=== PATIENT | female | born 2000 | race Caucasian/White ===

== ENCOUNTER 2020-05-23 12:38 | Outpatient (REF) | payer BC, SELFPAY | END 2020-05-23 12:39 | disposition home or self-care (01) | LOC: HO.LAB 12:38 | PROVIDERS: PCP Pediatrics; Visit Provider Internal Medicine | DX: Z20.822 Contact with and (suspected) exposure to COVID-19 (principal) | CPT/HCPCS: 36415; C9803; U0003 ==

== ENCOUNTER 2020-07-30 12:00 | Outpatient (REF) | payer BC, SELFPAY ==
[2020-07-30 14:39] LABS: SARS COV2 PCR INHOUSE NEGATIVE (Negative)
== END 2020-07-30 12:01 | disposition home or self-care (01) ==
LOC: HO.LAB 12:00
PROVIDERS: Visit Provider Internal Medicine
DX: Z20.822 Contact with and (suspected) exposure to COVID-19 (principal)
CPT/HCPCS: C9803; U0003

== ENCOUNTER 2021-05-08 20:29 | Emergency (ER) | payer OTHER, SELFPAY ==
--- NOTE | ~2021-05-08 | XR_ITS ---
EXAMINATION: X-RAY RIGHT WRIST/HAND CLINICAL INFORMATION: Fall. COMPARISON: None TECHNIQUE: 4 views of the right wrist and hand were obtained. FINDINGS: Subtle nondisplaced distal radial fracture with intra-articular extension. No other fractures or malalignment. The carpal rows and scapholunate interval are maintained. No unexpected radiopaque foreign bodies. XR/XR hand wrist RT IMPRESSION: Nondisplaced distal radial fracture with intra-articular extension.
[2021-05-08 21:10] VITALS: BP 121/75; PULSE 107; RESP 18; TEMP 36.7; O2SAT 100; BMI 21.0
[2021-05-09] MEDS: Ibuprofen 600 MG TABLET PO (01:44)
[2021-05-09 04:10] VITALS: BP 133/84; PULSE 81; RESP 18; TEMP 36.4; O2SAT 100
--- NOTE | 2021-05-09 04:11 | PC.NURSE ---
Addendum entered by Brenda Flores 05/09/21 04:21: assessed splint placement and fingers are warm and wiggels fingers and has no issues. Original Note: This pct applied a sugar-tongue to right arm per . Pt tolerated procedure well. rn aware
--- NOTE | 2021-05-09 04:17 | ED_ITS ---
HPI - Fall General Chief Complaint: Fall Stated Complaint: right wrist injury Time Seen by Provider: 05/09/21 03:18 Source: patient Mode of arrival: ambulatory History of Present Illness HPI Narrative: This is a 20-year-old female, left-hand dominant, with no significant past medical history you presents after a snowboarding accident where she fell and landed on her outstretched right arm. Patient denies hitting her head, loss of consciousness and denies any other pain elsewhere. She denies any numbness, tingling, coolness to the right hand. Related Data Allergies Allergy/AdvReac Type Severity Reaction Status Date / Time Penicillins Allergy Unknown Unknown Verified 05/08/21 21:10 Review of Systems Review of Systems: Pertinent positives and negatives as stated in HPI 10 point review of systems is otherwise negative. [facility] Past Medical History Source: nursing notes reviewed Social History Social History Advance Directives: No Advance Directives Information Provided: Yes Physical Exam Vital Signs: Vital Signs: Last Vital Signs Temp 97.6 F 05/09/21 04:10 Pulse 81 05/09/21 04:10 Resp 18 05/09/21 04:10 BP 133/84 05/09/21 04:10 Pulse Ox 100 05/09/21 04:10 BMI result Body Mass Index 21.0 VITAL SIGNS: Reviewed. GENERAL: Well developed, well nourished, in no acute distress. HEAD: Normocephalic/atraumatic EYES: PERRLA, EOMI LUNGS: Normal breath sounds. No adventitious sounds or accessory muscle use. SpO2<100> CARDIOVASCULAR: Regular rate and rhythm without noted murmurs ABDOMEN: Soft, non-tender, non-distended with bowel sounds. RIGHT UPPER EXTREMITY: Full range of motion noted at shoulder and elbow, no noted deformity, palpable radius/ulna, capillary refill less than 3 seconds and sensation is intact. NEUROLOGIC: Alert and oriented x 4. Strength and sensation to light touch were grossly intact x 4. Course Course Course Narrative: 20-year-old female with history and clinical presentation suspicious for fracture of right radius, review of films indicates fracture with intra-articular extension. Patient received ibuprofen and was then placed in a sugar-tong splint and discharged home in stable condition. She and her family will pursue follow-up with [facility]. Discharge Plan Discharge Clinical Impression: Distal radius fracture Patient Disposition: Home, Self-Care Instructions: Arm Fracture in Adults (ED) Additional Instructions: 1. Tylenol 1000 mg, orally, every 6 hours as needed for pain control. Do not exceed 4000 mg within 24 hours. Ibuprofen 400 mg, orally with milk or food, every 6 hours as needed for pain control. 2. Keep your arm in the splint until you are evaluated by Orthopedics, the referral has been provided to you below. 3. Follow-up with your primary care provider in the next 2-3 days for re- evaluation further outpatient management. Return to the ER for worsening symptoms. Referrals: Margarita Shepherd MD [Primary Care Provider] - 2 days (Rt radius fracture) Cristopher Vaughn MD [Physician] - 2 days (Rt radius fracture with intra-articular extension. Placed in Sugar Tong)
== END 2021-05-09 04:45 | disposition home or self-care (01) ==
PROVIDERS: Emergency Provider Student in an Organized Health Care Education/Training Program; PCP Pediatrics
DX: S52.571A Other intraarticular fracture of lower end of right radius, initial encounter for closed fracture (principal); W17.81XA Fall down embankment (hill), initial encounter; Y93.23 Activity, snow (alpine) (downhill) skiing, snowboarding, sledding, tobogganing and snow tubing; Y92.828 Other wilderness area as the place of occurrence of the external cause; Y99.9 Unspecified external cause status
CPT/HCPCS: 29125; 73110; 73130; 99283; 99284

== ENCOUNTER 2022-08-12 14:10 | Emergency (ER) | payer OTHER, SELFPAY ==
--- NOTE | ~2022-08-12 | XR_ITS ---
EXAMINATION: XR SOFT TISSUE NECK CLINICAL INDICATION: Evaluate for foreign body COMPARISON: None available. TECHNIQUE: 2 views of the soft tissue neck were obtained. FINDINGS: No retropharyngeal edema is identified. No radiopaque foreign body is appreciated. Aryepiglottic folds appear unremarkable. On AP film there is a radiopaque tubular appearing structure not seen on lateral view and likely related to a hair band or braid. Visualized paranasal sinuses and mastoid air cells unremarkable. XR/XR soft tissue neck IMPRESSION: No radiopaque foreign body identified within the oropharynx or larynx.
[2022-08-12 15:16] VITALS: BP 136/88; PULSE 86; RESP 18; TEMP 37.2; O2SAT 98; BMI 21.0
--- NOTE | 2022-08-12 15:17 | ED.GENADULT ---
HPI - General Adult General Chief complaint: General Medical <Claudia Guerrero NP - Last Filed: 08/12/22 15:47> Stated complaint: Spitting Up Blood Swallowed Fishbone 08/08/22 <Claudia Guerrero NP - Last Filed: 08/12/22 15:47> Time Seen by Provider: 08/12/22 19:54 <Claudia Guerrero NP - Last Filed: 08/12/22 15:47> Source: patient and family (Mother) <Ml Ford MD - Last Filed: 08/12/22 22:03> Mode of arrival: ambulatory <Ml Ford MD - Last Filed: 08/12/22 22:03> History of Present Illness HPI narrative: This is a 21-year-old female who is otherwise healthy, she reports that she swallowed a fishbone on Wednesday and then throughout the day on Wednesday she felt discomfort in the back of her throat that did not seem to khanh and then states that yesterday she felt it move lower into her throat and she endorses that she made multiple attempts to cough and vomit in an effort to dislodge the sensation/bone and reports discomfort on the right side of her neck but states that she is able to breathe, eat and drink normally. Patient also reported concerns for possible blood in the saliva. <Ml Ford MD - Last Filed: 08/12/22 22:03> Related Data Allergies/adverse reactions: Allergies Allergy/AdvReac Type Severity Reaction Status Date / Time Penicillins Allergy Unknown Unknown Verified 08/12/22 15:16 <Claudia Guerrero NP - Last Filed: 08/12/22 15:47> Review of Systems Review of Systems: Pertinent positives and negatives as stated in HPI <Ml Ford MD - Last Filed: 08/12/22 22:03> PMFSH Past Medical History Source: nursing notes reviewed <lM Ford MD - Last Filed: 08/12/22 22:03> Social History Social History: Social History Alcohol intake: current Alcohol intake frequency: holidays/special occasions only Alcohol type: wine Smoked in Last 30 Days: No Use of substances other than those prescribed or required for medical reasons: Yes Substance Use Type: Marijuana Substance Use Frequency: Daily Advance Directives: No Advance Directives Information Provided: No Patient : No <Claudia Guerrero NP - Last Filed: 08/12/22 15:47> Physical Exam ED Vital Signs: Vital Signs - 24 hr 08/12/22 15:16 08/12/22 19:37 08/12/22 21:22 Temperature 99.0 F 98.8 F Pulse Rate 86 89 85 Respiratory Rate 18 15 16 Blood Pressure 136/88 126/65 124/69 Pulse Oximetry 98 100 100 Oxygen Delivery Method Room Air Room Air Room Air BMI result Body Mass Index 21.0 <Claudia Guerrero NP - Last Filed: 08/12/22 15:47> Vital Signs - 24 hr 08/12/22 15:16 08/12/22 19:37 08/12/22 21:22 Temperature 99.0 F 98.8 F Pulse Rate 86 89 85 Respiratory Rate 18 15 16 Blood Pressure 136/88 126/65 124/69 Pulse Oximetry 98 100 100 Oxygen Delivery Method Room Air Room Air Room Air BMI result Body Mass Index 21.0 VITAL SIGNS: Reviewed. GENERAL: Well developed, well nourished, in no acute distress. HEAD: Normocephalic/atraumatic EYES: PERRLA, EOMI EARS: Ext canals without abnormality NOSE: Nares patent bilateral OROPHARYNX: no oral lesions noted, posterior pharynx clear and non-erythematous NECK: Supple, no adenopathy LUNGS: Normal breath sounds. No adventitious sounds or accessory muscle use. SpO2<100> CARDIOVASCULAR: Regular rate and rhythm without noted murmurs ABDOMEN: Soft, non-tender, non-distended with bowel sounds. MUSCULOSKELETAL: No tenderness, deformities, or effusions noted on gross inspection. EXTREMITIES: No cyanosis, clubbing or edema. SKIN: Inspection of the skin reveals no rashes NEUROLOGIC: Alert and oriented x 4. Strength and sensation to light touch were grossly intact x 4. <Ml Ford MD - Last Filed: 08/12/22 22:03> Course Course Course Narrative: This is a rapid medical exam. Deferred additional HPI, ROS, PE to primary provider. 21 yo female previously healthy here with complaints of feeling like a fishbone is stuck in her neck after eating fish 08/08. Patient is concerned because when she coughs she notices blood tinged sputum. Has been eating/drinking normally since this happened. VSS WIll obtain x-ray soft tissue neck <Claudia Guerrero NP - Last Filed: 08/12/22 15:47> Medications Administered Discontinued Medications Generic Name Dose Route Start Last Admin Trade Name Freq PRN Reason Stop Dose Admin Benzocaine 1 lozenge 08/12/22 20:53 08/12/22 21:16 Throat Lozenge, Medicated Lozenge MUCOUS MEM 08/12/22 20:54 1 lozenge ONCE ONE Administration <Claudia Guerrero NP - Last Filed: 08/12/22 15:47> Medications Administered Discontinued Medications Generic Name Dose Route Start Last Admin Trade Name Freq PRN Reason Stop Dose Admin Benzocaine 1 lozenge 08/12/22 20:53 08/12/22 21:16 Throat Lozenge, Medicated Lozenge MUCOUS MEM 08/12/22 20:54 1 lozenge ONCE ONE Administration <Ml Ford MD - Last Filed: 08/12/22 22:03> Medical Decision Making Medical Decision Making MDM Narrative: 21-year-old female with history and clinical presentation suggestive of fish bone irritation and possible lodged with irritation. My interpretation of the imaging studies is consistent with radiology's impression. Patient also suffers from a component of anxiety and we discussed different modalities to help alleviate her discomfort to include GI cocktail and Cepacol. There are no acute breathing or swallowing issues and although a referral to ENT was offered the patient declines stating that she needs to return to [place] where she is currently attending college. Will trial Cepacol and reassess. On reassessment patient states that after the Cepacol she has had significant relief of the discomfort in her throat and is agreeable for discharge and continued use of the Cepacol until she gets her follow-up appointment with ENT or a completely resolved on its own. She is otherwise discharged home in stable condition with airway and swallowing intact <Ml Ford MD - Last Filed: 08/12/22 22:03> Differential Diagnosis Please see the discussion above <Ml Ford MD - Last Filed: 08/12/22 22:03> Radiology Impression Radiologist Impression: My interpretation is in agreement with radiology's impression of the imaging studies. <Ml Ford MD - Last Filed: 08/12/22 22:03> Discharge Plan Discharge Clinical Impression: Fishbone in throat <Claudia Guerrero NP - Last Filed: 08/12/22 15:47> Patient Disposition: Home, Self-Care <Claudia Guerrero NP - Last Filed: 08/12/22 15:47> Instructions: Foreign Body Ingestion (ED) <Claudia Guerrero NP - Last Filed: 08/12/22 15:47> Additional Instructions: 1. Recommend that you continue to use [id number] Cepacol for symptom relief. 2. A referral for ENT has been provided below. Please call the office in the morning and set up an appointment for further evaluation. Return to the ER for any worsening or change in your symptoms. <Claudia Guerrero NP - Last Filed: 08/12/22 15:47>
[2022-08-12 19:37] VITALS: BP 126/65; PULSE 89; RESP 15; O2SAT 100
[2022-08-12] MEDS: Throat Lozenge, Medicated LOZENGE 1 LOZENGE MUCOUS MEM (21:16)
[2022-08-12 21:22] VITALS: BP 124/69; PULSE 85; RESP 16; TEMP 37.1; O2SAT 100
== END 2022-08-12 22:21 | disposition home or self-care (01) ==
PROVIDERS: Emergency Provider Student in an Organized Health Care Education/Training Program
DX: T17.228A Food in pharynx causing other injury, initial encounter (principal); X58.XXXA Exposure to other specified factors, initial encounter; Y93.9 Activity, unspecified; Y92.9 Unspecified place or not applicable
CPT/HCPCS: 70360; 99283; 99284

== ENCOUNTER 2023-03-08 09:00 | Outpatient (AMB) | payer OTHER, SELFPAY ==
--- NOTE | 2023-03-08 09:01 | A.OFFPC_ITS ---
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 Accompanied by: Self / Same As Patient Allergies Penicillins Allergy (Unknown, Verified 03/08/23 09:12) Unknown Medication List - Last Reconciled 03/08/23 by Linnette Causey MD amoxicillin 500 mg PO Q6H norgestimate-ethinyl estradiol 0.25-35 mg-mcg 1 tab PO DAILY Tobacco use date assessed: 03/08/23 Dental Screening Dental Screen Date: 03/08/23 Did you have a dental visit in the last 12 months?: Yes Did you have a dental problem in the last 6 months where you did not have access to dental care?: No Was dental information given to patient?: Patient has dentist HPI HPI Comments History of Present Illness Details This is a 22-year-old female that comes for her physical exam. Last Pap smear was 2 months ago with OBGYN and was normal as per patient. No chest pain or shortness of breath. Has history of depression with anxiety the require counseling at some point but not anymore. [facility] Surgical History History of root canal procedure Family History Mother No problems noted. Father Hypertension Social History Housing: Apartment Alcohol intake: current Alcohol intake frequency: holidays/special occasions only Alcohol type: wine Patient Tobacco Use Status: Never used Tobacco e-Cigarette/Vaping Use: Never Used Second Hand Smoke Exposure: No Substance Use Type: Marijuana service: No Current occupational status: employed Current occupational exposures/hazards: No Cognitive needs: No Hearing needs: No Vision needs: No Questionnaire PHQ-9 Over the last 2 weeks, how often have you been bothered by any of the following problems? 1. Little interest or pleasure in doing things: not at all 2. Feeling down, depressed, or hopeless: not at all 3. Trouble falling or staying asleep, or sleeping too much: not at all 4. Feeling tired or having little energy: not at all 5. Poor appetite or overeating: not at all 6. Feeling bad about yourself - or that you are a failure or have let yourself or your family down: not at all 7. Trouble concentrating on things, such as reading the newspaper or watching television: not at all 8. Moving or speaking so slowly that other people could have noticed. Or the opposite - being so fidgety or restless that you have been moving around a lot more than usual: not at all 9. Thoughts that you would be better off or of hurting yourself in some way: not at all Total score: 0 Depression Screening Interpretation: Negative Depression Screening Done: Yes 50588 - PHQ-9 Billing: Yes Source: Developed by Drs. Santhosh Parker, Fernanda Barry, David Mack and colleagues, with an educational frederick from [employer]. Thrive Questionnaire Date Thrive assessed: 03/08/23 I am a: Patient What is your living situation today?: I have a steady place to live Within the past 12 months, did the food you bought not last and you didn't have the money to get more?: Never true Within the past 12 months, did you worry whether your food would run out before you got money to buy more?: Never true Do you have trouble paying for medicines?: No Do you have trouble getting transportation to medical appointments?: No Do you have trouble paying your heating and electricity bill?: No Do you have trouble taking care of your child, family member or friend?: No Do you have trouble with day-to-day activities such as bathing, preparing meals, shopping, managing finances, etc.?: No Are you currently unemployed and looking for a job?: No Are you interested in more education?: No Please select the resources that you would like help with: None Currently or been in a relationship where the following occur: no concerns reported AUDIT C Alcohol Use Questionnaire (AUDIT-C) 1. How often do you have a drink containing alcohol?: Monthly or less 2. How many drinks containing alcohol do you have on a typical day when you are drinking?: 1 or 2 3. How often do you have six or more drinks on one occasion?: Never Total Score: 1 Score Reviewed/Action Taken: No JADA-7 AMB Questionnaire JADA-7 Date JADA - 7 assessed: 03/08/23 Feeling nervous, anxious, or on edge: 1 = Several days Not being able to stop or control worryin = Not at all Worrying too much about different things: 1 = Several days Trouble relaxin = Not at all Being so restless that it is hard to sit still: 0 = Not at all Becoming easily annoyed or irritable: 0 = Not at all Feeling afraid as if something awful might happen: 0 = Not at all Total JADA-7 score (0-4 normal; 5-9 mild; 10-14 moderate; 15-21 severe): 2 Source: Developed by Drs. Santhosh Parker, Fernanda Barry, David Mack and colleagues, with an educational frederick from [employer]. JADA-7 Assessment Billing JADA-7 Assessment Tool: JADA-7 Assessment 87808 Review of Systems Const All systems reviewed & are unremarkable except as noted in HPI and below Eyes Reports no additional complaints, Denies change in vision and Denies other visual disturbances Card Denies chest pain at rest, Denies chest pain with activity, Denies edema, Denies irregular heart rhythm, Denies claudication, Denies dyspnea, Denies dyspnea on exertion, Denies orthopnea, Denies paroxysmal nocturnal dyspnea and Denies slow heart rate Resp Denies cough, Denies dyspnea and Denies dyspnea on exertion GI Denies abdominal pain, Denies change in bowel habits, Denies excessive flatus, Denies nausea and Denies vomiting Denies urinary incontinence, Denies urinary hesitancy and Denies urinary urgency Musc Denies abnormal gait, Denies atrophy, Denies deformity and Denies limited range of motion Skin/Breast Denies bleeding lesions, Denies changing lesions and Denies rash Neuro Denies abnormal gait, Denies behavioral changes, Denies confusion and Denies lack of coordination Psych Denies behavioral changes and Denies confusion Physical exam (Primary Care) Vital Signs: Last Vital Signs BP 130/72 03/08/23 09:02 BMI result Body Mass Index 23.0 Tobacco/Smoking Status: Tobacco use Status Tobacco use date assessed 03/08/23 03/08/23 09:07 Patient Tobacco Use Status Never used Tobacco 03/08/23 09:07 e-Cigarette/Vaping Use Never Used 03/08/23 09:07 PHQ-9: PHQ-9 Score PHQ-9: Total score 0 03/08/23 09:07 Depression Screening Interpretation: Negative Thrive Assessment: Date of Thrive Assessment Date Thrive assessed 03/08/23 03/08/23 09:07 Currently or been in a relationship where the following occur: no concerns reported Const General: No confusion Orientation/consciousness: patient oriented x3 and No confusion HENMT Head: Yes normal to inspection, Yes normocephalic and Yes atraumatic Ears: external ears normal Eyes General: appearance normal, both eyes and all related structures Eyelids: Yes eyelids normal Conjunctivae: conjunctivae normal Neck Neck: Yes normal visual inspection and Yes supple Resp Effort & Inspection: normal respiratory effort Auscultation: clear to auscultation bilaterally Cardio Jugular venous distension: no JVD Rate: regular rate Rhythm: regular rhythm Heart sounds: S1 normal heart sound present and S2 normal heart sound present GI Inspection: Yes normal to inspection Palpation (GI): Soft to palpation and nontender Auscultation: normal bowel sounds Skin General skin exam: no rashes or lesions noted Neuro General: patient oriented x3, no focal motor deficits and No confusion Extrem General: Yes full ROM Psych Appearance: grossly normal Assessment and Plan Assessment & Plan (1) Physical exam: Code(s): Z00.00 - Encounter for general adult medical examination without abnormal findings Plan: Repeat in a year. Orders: Orders Lipid Panel Today Z00.00 - Encounter for general adult medical examination without abnormal findings Comprehensive [place]. Panel Fast Today Z00.00 - Encounter for general adult medical examination without abnormal findings Coding Level of Care Code New Pt Prev Care 18-39yr(53357 Diagnoses Physical exam Z00.00 Additional Codes JADA-7 Assessment Billing - JADA-7 Assessment Tool: JADA-7 Assessment 72898 ([id number]) Time Spent (min) 31
[2023-03-08 09:02] VITALS: BP 130/72; BMI 23.0
== END 2023-03-08 09:21 | disposition home or self-care (01) ==
PROVIDERS: PCP Internal Medicine; Visit Provider Internal Medicine
DX: Z00.00 Encounter for general adult medical examination without abnormal findings (principal)
CPT/HCPCS: 99385

== ENCOUNTER 2023-03-08 09:24 | Outpatient (REF) | payer OTHER, SELFPAY ==
[2023-03-08 10:51] LABS: Alanine Aminotransferase 8 U/L (0-31); Albumin Level 4.2 g/dL (3.5-5.0); Alkaline Phosphatase 49 U/L (39-117); Anion Gap 12 (12-20); Aspartate Amino Transferase 13 U/L (5-31); Bilirubin Total 0.3 mg/dL (0.0-1.0); Blood Urea Nitrogen 9 mg/dL (9-16); Calcium 9.3 mg/dL (8.4-10.2); Carbon Dioxide 25 mmol/L (22-29); Chloride 105 mmol/L (96-108); Cholesterol 186 mg/dL (<200); Estimated Glomerular Filt Rate > 60; Glucose Fasting 86 mg/dL (60-99); HDL Cholesterol 90 mg/dL (>40); LDL Cholesterol Calculated 82 mg/dL (<100); Potassium 3.9 mmol/L (3.3-5.1); Sodium 138 mmol/L (135-145); Total Protein 7.1 g/dL (6.5-8.0); Triglycerides 74 mg/dL (<150)
== END 2023-03-08 09:25 | disposition home or self-care (01) ==
LOC: HO.LAB 09:24
PROVIDERS: PCP Internal Medicine; Visit Provider Internal Medicine
DX: Z00.00 Encounter for general adult medical examination without abnormal findings (principal)
CPT/HCPCS: 36415; 80053; 80061

== ENCOUNTER 2024-03-09 08:49 | Outpatient (AMB) | payer OTHER, SELFPAY ==
[2024-03-09 08:53] VITALS: BP 120/80; BMI 22.1
--- NOTE | 2024-03-09 08:53 | MHC.PC.OV ---
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 Accompanied by: Self / Same As Patient Allergies Penicillins Allergy (Unknown, Verified 03/09/24 09:11) Unknown Medication List - Last Reconciled 03/09/24 by Linnette Causey MD norgestimate-ethinyl estradiol 0.25-35 mg-mcg 1 tab PO DAILY Tobacco use date assessed: 03/09/24 Dental Screening Dental Screen Date: 03/09/24 Did you have a dental visit in the last 12 months?: Yes Did you have a dental problem in the last 6 months where you did not have access to dental care?: No Was dental information given to patient?: Patient has dentist HPI HPI Comments History of Present Illness Details This is a 23-year-old female that comes for her physical exam. Pap smear done [address] Garcia was normal as per patient. No acute complaints. [facility] Surgical History History of root canal procedure Family History (Updated 03/09/24 @ 09:15 by Linnette Causey MD) Mother SRAVAN (obstructive sleep apnea) Father Hypertension Social History (Updated 03/09/24 @ 09:16 by Linnette Causey MD) Housing: Apartment Alcohol intake: current Alcohol intake frequency: a few times a week Alcohol type: wine Patient Tobacco Use Status: Never used Tobacco e-Cigarette/Vaping Use: Never Used Second Hand Smoke Exposure: No Substance Use Type: Marijuana service: No Current occupational status: employed Current occupational exposures/hazards: No Cognitive needs: No Hearing needs: No Vision needs: No Questionnaire PHQ-9 Over the last 2 weeks, how often have you been bothered by any of the following problems? 1. Little interest or pleasure in doing things: not at all 2. Feeling down, depressed, or hopeless: not at all 3. Trouble falling or staying asleep, or sleeping too much: not at all 4. Feeling tired or having little energy: several days 5. Poor appetite or overeating: not at all 6. Feeling bad about yourself - or that you are a failure or have let yourself or your family down: not at all 7. Trouble concentrating on things, such as reading the newspaper or watching television: not at all 8. Moving or speaking so slowly that other people could have noticed. Or the opposite - being so fidgety or restless that you have been moving around a lot more than usual: not at all 9. Thoughts that you would be better off or of hurting yourself in some way: not at all Total score: 1 Depression Screening Interpretation: Negative Depression Screening Done: Yes 10657 - PHQ-9 Billing: Yes Source: Developed by Drs. Santhosh Parker, Fernanda Barry, David Mack and colleagues, with an educational frederick from [employer]. Thrive Questionnaire Date Thrive assessed: 03/02/24 I am a: Patient What is your living situation today?: I have a steady place to live Within the past 12 months, did the food you bought not last and you didn't have the money to get more?: Never true Within the past 12 months, did you worry whether your food would run out before you got money to buy more?: Never true Do you have trouble paying for medicines?: No Do you have trouble getting transportation to medical appointments?: No Do you have trouble paying your heating and electricity bill?: No Do you have trouble taking care of your child, family member or friend?: No Do you have trouble with day-to-day activities such as bathing, preparing meals, shopping, managing finances, etc.?: No Are you currently unemployed and looking for a job?: No Are you interested in more education?: No Please select the resources that you would like help with: None Currently or been in a relationship where the following occur: No concerns reported THRIVE Score: 0 AUDIT C Alcohol Use Questionnaire (AUDIT-C) 1. How often do you have a drink containing alcohol?: 2-3 times a week 2. How many drinks containing alcohol do you have on a typical day when you are drinking?: 1 or 2 3. How often do you have six or more drinks on one occasion?: Less than monthly Total Score: 4 JADA-7 AMB Questionnaire JADA-7 Date JADA - 7 assessed: 03/08/23 Feeling nervous, anxious, or on edge: 0 = Not at all Not being able to stop or control worryin = Not at all Worrying too much about different things: 0 = Not at all Trouble relaxin = Not at all Being so restless that it is hard to sit still: 0 = Not at all Becoming easily annoyed or irritable: 0 = Not at all Feeling afraid as if something awful might happen: 0 = Not at all Total JADA-7 score (0-4 normal; 5-9 mild; 10-14 moderate; 15-21 severe): 0 Source: Developed by Drs. Santhosh Parker, Fernanda Barry, David Mack and colleagues, with an educational frederick from [employer]. JADA-7 Assessment Billing JADA-7 Assessment Tool: JADA-7 Assessment 95900 Review of Systems Const All systems reviewed & are unremarkable except as noted in HPI and below Eyes Reports no additional complaints, Denies change in vision and Denies other visual disturbances Card Denies chest pain at rest, Denies chest pain with activity, Denies edema, Denies irregular heart rhythm, Denies claudication, Denies dyspnea, Denies dyspnea on exertion, Denies orthopnea, Denies paroxysmal nocturnal dyspnea and Denies slow heart rate Resp Denies cough, Denies dyspnea and Denies dyspnea on exertion GI Denies abdominal pain, Denies change in bowel habits, Denies excessive flatus, Denies nausea and Denies vomiting Physical exam (Primary Care) Vital Signs: Last Vital Signs BP 120/80 03/09/24 08:53 BMI result Body Mass Index 22.1 Tobacco/Smoking Status: Tobacco use Status Tobacco use date assessed 03/09/24 03/09/24 08:56 Patient Tobacco Use Status Never used Tobacco 03/09/24 09:16 e-Cigarette/Vaping Use Never Used 03/09/24 09:16 PHQ-9: PHQ-9 Score PHQ-9: Total score 1 03/09/24 09:16 Depression Screening Interpretation: Negative Thrive Assessment: Date of Thrive Assessment Date Thrive assessed 03/02/24 03/09/24 08:56 Currently or been in a relationship where the following occur: No concerns reported HENMT Head: Yes normal to inspection, Yes normocephalic and Yes atraumatic Ears: external ears normal Eyes General: appearance normal, both eyes and all related structures Eyelids: Yes eyelids normal Conjunctivae: conjunctivae normal Neck Neck: Yes normal visual inspection and Yes supple Resp Effort & Inspection: normal respiratory effort Auscultation: clear to auscultation bilaterally Cardio Jugular venous distension: no JVD Rate: regular rate Rhythm: regular rhythm Heart sounds: S1 normal heart sound present and S2 normal heart sound present GI Inspection: Yes normal to inspection Palpation (GI): Soft to palpation and nontender Auscultation: normal bowel sounds Skin General skin exam: no rashes or lesions noted Neuro General: no focal motor deficits Extrem General: Yes full ROM Psych Appearance: grossly normal Coding Level of Care Code Est Pt Prev Care 18-39y(40606) Diagnoses Physical exam Z00.00 Additional Codes JADA-7 Assessment Billing - JADA-7 Assessment Tool: JADA-7 Assessment 54400 ([id number]) PHQ-9 - 63636 - PHQ-9 Billing: Yes ([id number]) Time Spent (min) 30 Assessment & Plan Assessment & Plan (1) Physical exam: Code(s): Z00.00 - Encounter for general adult medical examination without abnormal findings Category: Medical Plan: Repeat in a year.
== END 2024-03-09 09:22 | disposition home or self-care (01) ==
LOC: HO.HMCH 08:50
PROVIDERS: PCP Internal Medicine; Visit Provider Internal Medicine
DX: Z00.00 Encounter for general adult medical examination without abnormal findings (principal)

== ENCOUNTER → 2024-03-09 08:49 | Outpatient (BNVA) | payer OTHER, SELFPAY | PROVIDERS: PCP Internal Medicine; Visit Provider Internal Medicine | DX: Z00.00 Encounter for general adult medical examination without abnormal findings (principal) | CPT/HCPCS: 96127 ==